=== PATIENT | female | born 1965 | race American Indian/Alaskan Native ===

== ENCOUNTER 2016-07-09 23:36 | Emergency (ER) | payer OTHER ==
[2016-07-10] MEDS ORDERED: TYLENOL PO ONE (02:03)
[2016-07-10 02:39] LABS: Basophils % (Auto) 0.1 % (0.0-1.8); Eosinophils % (Auto) 0.1 % (0.0-4.3); Hemoglobin 12.3 gm/dl (10.1-14.3); Mean Corpuscular HGB Conc 32 % (30-34); Mean Corpuscular Hemoglobin 28 pg (28-32); Mean Corpuscular Volume 86 fl (79-97); Platelet Count 216 K/mm3 (140-440); Red Blood Count 4.44 M/mm3 (3.65-5.03); Red Cell Distribution Width 12.5 % (13.2-15.2); White Blood Count 18.5 K/mm3 (4.5-11.0)
[2016-07-10 02:55] LABS: Alanine Aminotransferase 41 units/L (7-56); Albumin 3.7 g/dL (3.9-5); Alkaline Phosphatase 75 units/L (35-129); Anion Gap 21 mmol/L; Blood Urea Nitrogen 9 mg/dL (7-17); Calcium 8.7 mg/dL (8.4-10.2); Carbon Dioxide 23 mmol/L (22-30); Glucose 98 mg/dL (65-100); Lipase 34 units/L (13-60); Sodium 135 mmol/L (137-145); Total Protein 7.5 g/dL (6.3-8.2)
[2016-07-10 03:03] LABS: Potassium 2.8 mmol/L (3.6-5.0)
[2016-07-10] MEDS ORDERED: K-DUR PO ONE (03:27)
[2016-07-10] MEDS ORDERED: MORPHINE IV ONE (03:38)
[2016-07-10] MEDS ORDERED: NACL 0.9% 1000 ML 1,000 ML IV ONE (03:38)
[2016-07-10] MEDS ORDERED: ZOFRAN IV ONE (03:39)
--- NOTE | 2016-07-10 03:43 | Emergency Department Report ---
ED Abdominal Pain HPI - General Chief Complaint: Abdominal Pain Stated Complaint: ABD PAIN Time Seen by Provider: 07/10/16 03:26 Source: patient Mode of arrival: Wheelchair Limitations: No Limitations - History of Present Illness Initial Comments: Patient is a 51-year-old female with a history of muscle spasms, kidney stones, asthma, migraines and presents to the ER complaining of right flank pain. Patient reports for the last 3 days she's had sharp, constant right flank pain radiating to the lower back with associated fever, nausea, and vomiting. Patient reports she was in [place] and traveled back via car yesterday. Patient does have a history of renal colic and reports this is similar to her prior kidney stone attacks. Otherwise no headaches, chills, chest pain, shortness of breath, abdominal pain, trauma, sick contacts, travel outside the [place]. Pt is s/p appendectomy years prior. Severity scale (0 -10): 10 - Related Data Home Medications Medication Instructions Recorded Confirmed Last Taken Albuterol *Only Ed* [Proventil 2.5 mg IH BID 12/27/14 12/29/14 12/26/14 09:00 0.5% NEBS] Fluticasone/Salmeterol [Advair 1 puff IH BID 12/27/14 12/29/14 12/26/14 Diskus 250-50 mcg] Gabapentin [Neurontin] 200 mg PO Q8HR 12/27/14 12/28/14 12/25/14 Previous Rx's Medication Instructions Recorded Last Taken Type Sulfamethoxazole/Trimethoprim 1 each PO BID #20 tablet 12/27/14 12/28/14 23:45 Rx [Bactrim DS TAB] HYDROcodone/APAP 7.5-325 [[place] 1 each PO Q6HR PRN #10 tablet 10/19/15 Unknown Rx 7.5-325 mg TAB] Cefdinir 300 mg PO BID #20 capsule 07/10/16 Unknown Rx Allergies Allergy/AdvReac Type Severity Reaction Status Date / Time No Known Allergies Allergy Verified 12/27/14 01:15 ED Review of Systems ROS: Stated complaint: ABD PAIN Other details as noted in HPI Comment: All other systems reviewed and negative ED Past Medical Hx - Past Medical History Previous Medical History?: Yes Hx Renal Disease: Yes (kidney stones) Hx Arthritis: Yes Hx Headaches / Migraines: Yes Hx Asthma: Yes Additional medical history: herniated disc. muscle spasms. tumor right forehead. - Surgical History Past Surgical History?: Yes Hx Appendectomy: Yes Additional Surgical History: partial hyster. x2 - Social History Smoking Status: Current Every Day Smoker Substance Use Type: None - Medications Home Medications: Home Medications Medication Instructions Recorded Confirmed Last Taken Type Albuterol *Only Ed* [Proventil 2.5 mg IH BID 12/27/14 12/29/14 12/26/14 09:00 History 0.5% NEBS] Fluticasone/Salmeterol [Advair 1 puff IH BID 12/27/14 12/29/14 12/26/14 History Diskus 250-50 mcg] Gabapentin [Neurontin] 200 mg PO Q8HR 12/27/14 12/28/14 12/25/14 History Sulfamethoxazole/Trimethoprim 1 each PO BID #20 tablet 12/27/14 12/29/14 23:45 Rx [Bactrim DS TAB] HYDROcodone/APAP 7.5-325 [[place] 1 each PO Q6HR PRN #10 tablet 10/19/15 Unknown Rx 7.5-325 mg TAB] Cefdinir 300 mg PO BID #20 capsule 07/10/16 Unknown Rx ED Physical Exam - General Limitations: No Limitations General appearance: alert, in no apparent distress - Head Head exam: Present: atraumatic, normocephalic - Eye Eye exam: Present: normal appearance - ENT ENT exam: Present: mucous membranes moist - Neck Neck exam: Present: normal inspection - Respiratory Respiratory exam: Present: normal lung sounds bilaterally. Absent: respiratory distress, wheezes, rales, rhonchi, stridor - Cardiovascular Cardiovascular Exam: Present: regular rate, normal rhythm, normal heart sounds. Absent: irregular rhythm, systolic murmur, diastolic murmur, rubs, gallop - GI/Abdominal GI/Abdominal exam: Present: soft, tenderness (R flank), normal bowel sounds. Absent: distended, guarding, rebound, rigid - Extremities Exam Extremities exam: Present: normal inspection, full ROM. Absent: tenderness - Back Exam Back exam: Present: normal inspection, full ROM, CVA tenderness (R). Absent: CVA tenderness (L), muscle spasm - Neurological Exam Neurological exam: Present: alert, oriented X3 - Psychiatric Psychiatric exam: Present: normal affect, normal mood - Skin Skin exam: Present: warm, dry, intact, normal color. Absent: rash ED Course Vital Signs 07/10/16 07/10/16 07/10/16 01:57 02:05 04:22 Temperature 97.9 F Pulse Rate 95 H Respiratory 20 20 18 Rate Blood Pressure 102/63 Blood Pressure [Right] O2 Sat by Pulse 99 Oximetry 07/10/16 07/10/16 07/10/16 04:23 04:25 04:30 Temperature 98.3 F Pulse Rate 72 71 Respiratory 20 14 Rate Blood Pressure 101/60 98/55 Blood Pressure 101/60 [Right] O2 Sat by Pulse 100 100 97 Oximetry 07/10/16 07/10/16 07/10/16 04:38 04:51 04:53 Temperature Pulse Rate 72 71 Respiratory 20 16 15 Rate Blood Pressure 98/55 98/55 Blood Pressure [Right] O2 Sat by Pulse 100 100 98 Oximetry ED Medical Decision Making - Lab Data Result diagrams: 07/10/16 02:08 07/10/16 02:08 - Radiology Data Radiology results: report reviewed CT abdomen and pelvis: Large pelvic mass is slightly increased in size since prior study. A uterus with multiple fibroids suspected. No evidence of intestinal urinary tract obstruction. No ileus or enteritis. (+)UTI, ordered ceftriaxone 1 gm IVPB Results discussed with the patient, copy of CT given to the patient Critical care attestation.: If time is entered above; I have spent that time in minutes in the direct care of this critically ill patient, excluding procedure time. ED Disposition Clinical Impression: UTI (urinary tract infection), Abdominal pain, Fibroids Disposition: DISCHARGED TO HOME OR SELFCARE Is pt being admited?: No Condition: Stable Instructions: Abdominal Pain (ED), Urinary Tract Infection in Women (ED), Uterine Fibroids (ED) Prescriptions: Cefdinir 300 mg PO BID #20 capsule
[2016-07-10 04:43] LABS: Bacteria,Urine 4+ /HPF (Negative); Bilirubin,Urine NEG (Negative); Blood,Urine MOD (Negative); Ketones,Urine 20 mg/dL (Negative); Leukocyte Esterase,Urine LG (Negative); Mucus,Urine 3+ /HPF; Nitrite,Urine NEG (Negative)
--- NOTE | 2016-07-10 04:47 | Cat Scan Report ---
FINAL REPORT PROCEDURE: CT ABDOMEN PELVIS WO CON TECHNIQUE: Computerized axial tomography of the abdomen and pelvis was performed without intravenous contrast. This study is performed without intravascular contrast material and its sensitivity for abdominal and pelvic pathology, including neoplasms, inflammation, abscess, free fluid, thrombosis, arterial dissection and infarction, is reduced compared with a contrast enhanced study. HISTORY: rt lower abd pain poss kidney stones COMPARISON: 12/27/2014 FINDINGS: Visualized lower thorax: No significant abnormality. Liver: Normal size and attenuation. Spleen: Normal size and attenuation. Gallbladder and biliary system: Normal. Pancreas: Normal. Adrenals: Normal. Kidneys: Both kidneys have normal size. No hydronephrosis. There are few small calcifications in the corticomedullary region of the right kidney. The largest measures up to 4 millimeters.. GI tract: No obstruction. No ileus or enteritis. The cecum, appendix and colon are normal.. Lymph nodes and mesentery: Normal. Vasculature: Mild atherosclerosis of the aorta.. Bladder: Normal. Reproductive organs: There remains a large mixed attenuated mass of the uterus. There are some calcifications within this region. This has slightly increased in size since prior study. Multiple uterine fibroids are suspected. The mass measures at least 11 by 7.5 by 8 centimeters.. Peritoneum: No free fluid. Musculoskeletal structures: No significant abnormality. Other: None. IMPRESSION: Large pelvic mass has slightly increased in size since prior study. A uterus with multiple fibroids is suspected. No evidence of intestinal or urinary tract obstruction. No ileus or enteritis..
[2016-07-10] MEDS ORDERED: ROCEPHIN 1,000 MG in NACL 0.9% 50 ML IV NR (06:00)
[2016-07-10] MEDS ORDERED: ROCEPHIN/NS 1 GM/50 ML 1 GM/50 ML BAG IV ONE (06:00)
[2016-07-10 06:12] VITALS: BP 98/57
== END 2016-07-10 06:05 | disposition home or self-care (01) ==
LOC: ED 23:36
DX: N39.0 Urinary tract infection, site not specified (principal); D25.9 Leiomyoma of uterus, unspecified; F17.200 Nicotine dependence, unspecified, uncomplicated; M19.90 Unspecified osteoarthritis, unspecified site; G43.909 Migraine, unspecified, not intractable, without status migrainosus; J45.909 Unspecified asthma, uncomplicated
CPT/HCPCS: 36415; 74176; 80053; 81001; 83690; 83735; 85025; 96361; 96365; 96375; 99284; J0696; J2270; J2405; J7030